=== PATIENT | female | born 1990 | race Caucasian/White ===

== ENCOUNTER 2019-11-04 05:39 | Emergency (ER) | payer SELFPAY ==
[2019-11-04] MEDS ORDERED: predniSONE 20 MG TAB ONE (06:15)
== END 2019-11-04 06:15 | disposition home or self-care (01) ==
LOC: BURERS 05:39
DX: L25.9 Unspecified contact dermatitis, unspecified cause (principal); F17.210 Nicotine dependence, cigarettes, uncomplicated
CPT/HCPCS: 99282; J7512